=== PATIENT | female | born 2000 | race Caucasian/White ===

== ENCOUNTER 2023-11-25 17:08 | Emergency (ER) | payer OTHER ==
[~2023-11-25] VITALS: Ht 170.2 cm; Wt 105.1 kg
[2023-11-25] MEDS ORDERED: VENTOLIN HFA18 GM INH (18:38)
[2023-11-25] MEDS ORDERED: CIPROFLOX-DEXA7.5 ML (18:38)
[2023-11-25] MEDS ORDERED: CEPHALEXIN500 M1 PO (19:19)
[2023-11-25] MEDS ORDERED: CEPHALEXIN MONOHYDRATE 500 MG HOME.PACK PO ONE (19:30)
[2023-11-25 19:31] VITALS: BP 112/83
== END 2023-11-25 19:32 | disposition home or self-care (01) ==
LOC: ED 17:08
DX: H66.92 Otitis media, unspecified, left ear (principal); J45.909 Unspecified asthma, uncomplicated; Z79.899 Other long term (current) drug therapy; Z88.0 Allergy status to penicillin
CPT/HCPCS: 99282; A9270